=== PATIENT | female | born 1980 | race Caucasian/White ===

== ENCOUNTER 2017-03-01 15:31 | Emergency (ER) | payer OTHER ==
[~2017-03-01] VITALS: Ht 154.9 cm; Wt 65.0 kg
[~2017-03-01 15:31] MED LIST: ACET-787 PO; CARI350T PO
[2017-03-01 15:42] VITALS: BP 122/67
--- NOTE | 2017-03-01 15:54 | NUR ---
Patient ambulated to bed 01.
--- NOTE | 2017-03-01 16:00 | NUR ---
37 F BIB SELF WITH THE C/O VAGINAL BLEEDING SINCE THIS PAST THURSDAY (01/28/17); PT STATES SHE IS APPROX 10 WKS ; PT STATES SHE IS "SPOTTING" WITH INTERMITTENT MODERATE BLEEDING; LMP 12/20/16 ; PT ALSO REPORTS DIZZINESS AND 2/10 "CRAMPING" NON RADIATING BL LOWER ABD/SUPRAPUBIC PAIN; PT DENIES ANY RECENT FEVERS OR N/V/D; PT IS AOX4; RR ARE EVEN AND UNLABORED; PT POSITIONED TO COMFORT; HOB; BED DOWN; ER MD AWARE OF PT STATUS; NAD; WILL CONTINUE TO MONITOR.
[2017-03-01 16:18] LABS: BASOPHILS # (AUTO) 0.2 K/uL (0.00-0.22); BASOPHILS % (AUTO) 1.8 % (0.0-2.0); EOSINOPHILS # (AUTO) 0.2 K/uL (0-0.4); HEMATOCRIT 38.8 % (36-48); HEMOGLOBIN 12.5 g/dL (12.0-16.0); LYMPHOCYTES # (AUTO) 2.6 K/uL (2.5-16.5); LYMPHOCYTES % (AUTO) 29.9 % (20.5-51.1); MEAN CORPUSCULAR HEMOGLOBIN 22 pg (27-31); MEAN CORPUSCULAR HGB CONC 32 g/dL (33-37); MEAN CORPUSCULAR VOLUME 69 fL (80-94); MONOCYTES # (AUTO) 0.6 K/uL (0.8-1.0); MONOCYTES % (AUTO) 6.7 % (1.7-9.3); NEUTROPHILS % (AUTO) 59.6 % (42.2-75.2); PLATELET COUNT (AUTO) 297 K/uL (140-450); RED BLOOD CELL COUNT(AUTO) 5.61 MIL/uL (4.20-5.40); RED CELL DISTRIBUTION WIDTH 15.2 % (11.6-13.7); WHITE BLOOD COUNT (AUTO) 8.6 K/uL (4.8-10.8)
[2017-03-01 16:20] LABS: APPEARANCE,URINE HAZY (CLEAR); BILIRUBIN,URINE NEGATIVE (NEGATIVE); BLOOD, URINE 3+ (NEGATIVE); COLOR,URINE YELLOW (YELLOW); LEUKOCYTE ESTERASE ,URINE 2+ (NEGATIVE); NITRITE, URINE NEGATIVE (NEGATIVE); UGLUCOSE NEGATIVE (NEGATIVE)
[2017-03-01 16:23] LABS: RBC,URINE 11-20 (MOD) /HPF (0-5); WBC,URINE 20-60 /HPF (0-5)
[2017-03-01 16:31] LABS: ANION GAP 13.7 (8-16); CARBON DIOXIDE 27.8 mmol/L (21-32); CREATININE 0.8 mg/dL (0.6-1.3); POTASSIUM 3.5 mmol/L (3.5-5.1)
[2017-03-01 16:35] LABS: PROTHROMBIN TIME 10.4 secs (10.8-13.4)
[2017-03-01 16:46] LABS: ALBUMIN 3.9 g/dL (3.4-5.0); THYROID STIMULATING HORMONE 1.05 uIU/mL (0.34-3.74); TOTAL BILIRUBIN 0.3 mg/dL (0.0-1.0)
[2017-03-01 17:50] VITALS: BP 123/70
--- NOTE | 2017-03-01 17:50 | NUR ---
Patient discharged with v/s stable. Written and verbal after care instructions given and explained. Patient alert, oriented and verbalized understanding of instructions. Ambulatory with steady gait. All questions addressed prior to discharge. ID band removed. Patient advised to follow up with PMD. Rx of Ciprofloxacin given. Patient educated on indication of medication including possible reaction and side effects. Opportunity to ask questions provided and answered.
== END 2017-03-01 17:50 | disposition home or self-care (01) ==
LOC: MED 15:31
DX: O36.4XX0 Maternal care for intrauterine death, not applicable or unspecified (principal); O23.41 Unspecified infection of urinary tract in pregnancy, first trimester; Z3A.01 Less than 8 weeks gestation of pregnancy; Z79.899 Other long term (current) drug therapy
CPT/HCPCS: 36415; 76801; 80053; 81001; 81025; 84443; 84702; 85025; 85610; 85730; 86900; 86901; 87086; 87186; 99285; Q0092

== ENCOUNTER 2017-08-05 08:42 | Emergency (ER) | payer OTHER ==
[~2017-08-05] VITALS: Ht 154.9 cm; Wt 61.7 kg
[2017-08-05 08:51] VITALS: BP 112/78
[2017-08-05] MEDS ORDERED: KETOROLAC 30 MG/ML VIAL IVP ONE (09:25)
[2017-08-05] MEDS ORDERED: ONDANSETRON 4 MG/2 ML VIAL IVP ONE (09:25)
[2017-08-05 09:40] VITALS: BP 112/78
[2017-08-05 10:02] LABS: EOSINOPHILS # (AUTO) 0.1 K/uL (0-0.4); HEMOGLOBIN 12.4 g/dL (12.0-16.0); MONOCYTES # (AUTO) 0.5 K/uL (0.8-1.0)
[2017-08-05 10:11] LABS: BASOPHILS # (AUTO) 0.3 K/uL (0.00-0.22); BASOPHILS % (AUTO) 4.5 % (0.0-2.0); EOSINOPHILS % (AUTO) 2.1 % (0.0-4.0); HEMATOCRIT 38.6 % (36-48); LYMPHOCYTES % (AUTO) 33.2 % (20.5-51.1); MEAN CORPUSCULAR HEMOGLOBIN 23 pg (27-31); MEAN CORPUSCULAR HGB CONC 32 g/dL (33-37); MEAN CORPUSCULAR VOLUME 70.5 fL (80-94); MONOCYTES % (AUTO) 7.6 % (1.7-9.3); NEUTROPHILS # (AUTO) 3.1 K/uL (1.8-7.7); NEUTROPHILS % (AUTO) 52.6 % (42.2-75.2); PLATELET COUNT (AUTO) 244 K/uL (140-450); RED BLOOD CELL COUNT(AUTO) 5.47 MIL/uL (4.20-5.40)
[2017-08-05 10:14] LABS: ANION GAP 10.7 (8-16); CARBON DIOXIDE 28.1 mmol/L (21-32); CREATININE 0.9 mg/dL (0.6-1.3); POTASSIUM 3.8 mmol/L (3.5-5.1)
[2017-08-05 10:20] LABS: ALBUMIN 4.1 g/dL (3.4-5.0); TOTAL BILIRUBIN 0.6 mg/dL (0.0-1.0)
[2017-08-05 14:09] LABS: APPEARANCE,URINE CLEAR (CLEAR); BILIRUBIN,URINE NEGATIVE (NEGATIVE); BLOOD, URINE NEGATIVE (NEGATIVE); COLOR,URINE YELLOW (YELLOW); LEUKOCYTE ESTERASE ,URINE NEGATIVE (NEGATIVE); NITRITE, URINE NEGATIVE (NEGATIVE); UGLUCOSE NEGATIVE (NEGATIVE)
== END 2017-08-05 10:49 | disposition left against medical advice (07) ==
LOC: MED 08:42
DX: R10.31 Right lower quadrant pain (principal); R11.0 Nausea; R19.7 Diarrhea, unspecified
CPT/HCPCS: 36415; 76705; 76856; 80053; 81003; 81025; 83605; 85025; 87040; 96374; 96375; 99285; J1885; J2405

== ENCOUNTER 2019-01-30 08:30 | Emergency (ER) | payer OTHER ==
[~2019-01-30] VITALS: Ht 149.9 cm; Wt 68.0 kg
[2019-01-30 08:33] VITALS: BP 112/81
--- NOTE | 2019-01-30 08:42 | NUR ---
Patient ambulated to bed 07
--- NOTE | 2019-01-30 08:44 | NUR ---
Received change of shift report, will continue to help with placement
--- NOTE | 2019-01-30 08:46 | NUR ---
Received change of shift report, will continue to help with placement
--- NOTE | 2019-01-30 08:51 | NUR ---
PT is 39F c/o lower abd cramping pain x 6weeks and vaginal bleeding x 2 weeks. PT reports 2 pads/2 hours, bleeding mostly visible w/ wiping/urination and presence of blood clots. PT 6 weeks , LMP 12/11/18, MOSHE 09/22/19, A2. PT denies SOB, CP, or dizziness. VSS. ER MD to see pt. No PMHx RX: denies
--- NOTE | 2019-01-30 08:51 | NUR ---
Dr. Azevedo evaluating patient at bedside.
--- NOTE | 2019-01-30 08:56 | NUR ---
please disregard note 01/30 wrong note, wrong patient
--- NOTE | 2019-01-30 09:18 | NUR ---
ATTEMPTED IV FOR LAB DRAW, 1 ATTEMPT UNSUCCESSFUL, PT STATED "I AM NOT A [employer] PIG, CAN SOMEONE COME IN AND DRAW BLOOD." CHARGE NURSE MIRNA INFORMED.
--- NOTE | 2019-01-30 09:19 | NUR ---
U/S AT BEDSIDE AT THIS TIME
--- NOTE | 2019-01-30 09:56 | NUR ---
LAB AT BEDSIDE AT THIS TIME.
[2019-01-30 10:05] LABS: HEMATOCRIT 37.7 % (36-48); HEMOGLOBIN 11.8 g/dL (12.0-16.0); MEAN CORPUSCULAR HEMOGLOBIN 22 pg (27-31); MEAN CORPUSCULAR HGB CONC 31 g/dL (33-37); MEAN CORPUSCULAR VOLUME 70.6 fL (80-94); PLATELET COUNT (AUTO) 299 K/uL (140-450); RED BLOOD CELL COUNT(AUTO) 5.34 MIL/uL (4.20-5.40); RED CELL DISTRIBUTION WIDTH 16.4 % (11.6-13.7)
[2019-01-30 10:12] LABS: APPEARANCE,URINE CLEAR (CLEAR); BILIRUBIN,URINE NEGATIVE (NEGATIVE); BLOOD, URINE 2+ (NEGATIVE); COLOR,URINE YELLOW (YELLOW); LEUKOCYTE ESTERASE ,URINE NEGATIVE (NEGATIVE); NITRITE, URINE NEGATIVE (NEGATIVE); UGLUCOSE NEGATIVE (NEGATIVE)
[2019-01-30 10:18] LABS: ANION GAP 14.2 (8-16); CARBON DIOXIDE 26.3 mmol/L (21-32); CREATININE 0.7 mg/dL (0.6-1.3); POTASSIUM 3.5 mmol/L (3.5-5.1)
[2019-01-30 10:21] LABS: RBC,URINE 0-5 /HPF (0-5)
[2019-01-30 10:22] LABS: WBC,URINE NONE SEEN /HPF (0-5)
[2019-01-30 10:24] LABS: ALBUMIN 4.3 g/dL (3.4-5.0); TOTAL BILIRUBIN 0.5 mg/dL (0.0-1.0)
[2019-01-30 10:28] LABS: BASOPHILS % (MANUAL) 0 % (0-2); EOSINOPHILS % (MANUAL) 2 % (0-4); LYMPHOCYTES % (MANUAL) 34 % (20-46); MONOCYTES % (MANUAL) 10 % (5-12)
[2019-01-30 11:17] VITALS: BP 111/69
--- NOTE | 2019-01-30 11:17 | NUR ---
Patient discharged with v/s stable. Written and verbal after care instructions given and explained. Patient verbalized understanding. Ambulatory with steady gait. All questions addressed prior to discharge. Advised to follow up with PMD.
== END 2019-01-30 11:17 | disposition home or self-care (01) ==
LOC: MED 08:30
DX: O46.91 Antepartum hemorrhage, unspecified, first trimester (principal); Z3A.01 Less than 8 weeks gestation of pregnancy; Z79.899 Other long term (current) drug therapy; Z79.891 Long term (current) use of opiate analgesic
CPT/HCPCS: 36415; 76817; 80053; 81001; 84702; 85025; 86900; 86901; 99284; Q0092

== ENCOUNTER 2023-04-12 14:40 | Emergency (ER) | payer OTHER ==
[~2023-04-12] VITALS: Ht 149.9 cm; Wt 66.7 kg
[~2023-04-12 14:40] MED LIST changes: -ACET-787 PO; +HYDR-5191 PO
[2023-04-12 14:41] VITALS: BP 140/80; PULSE 86; RESP 16; TEMP 98.7; O2SAT 99
[2023-04-12 15:50] LABS: FLU A ANTIGEN negative (NEGATIVE); FLU B ANTIGEN NEGATIVE (NEGATIVE)
[2023-04-12 17:01] VITALS: BP 140/80; PULSE 86; RESP 16; TEMP 98.7; O2SAT 99
== END 2023-04-12 17:01 | disposition left against medical advice (07) ==
LOC: MED 14:40
DX: U07.1 COVID-19 (principal); Z53.21 Procedure and treatment not carried out due to patient leaving prior to being seen by health care provider
CPT/HCPCS: 71045; 99281